=== PATIENT | male | born 1955 | race Caucasian/White ===

== ENCOUNTER 2016-11-07 00:11 | Inpatient (IN) | payer OTHER ==
[2016-11-02 11:17] VITALS: BP 172/99
[2016-11-02 13:49] LABS: BASOPHIL % 0.4 % (0.0-0.2); EOSINOPHIL # 0.1 10^3/uL (0.0-0.2); EOSINOPHIL % 1.7 % (0.0-5.0); HEMOGLOBIN 14.4 g/dL (13.9-16.3); LYMPHOCYTES # 2.6 10^3/uL (1.0-4.8); LYMPHOCYTES % 32.3 % (24.0-44.0); MEAN CELL HGB 32.9 pg (26-34); MEAN CELL HGB CONCENTRATION 33.8 g/dL (33-37); MEAN CORP VOLUME 97.3 fL (78-100); MEAN PLATELET VOLUME 10.6 fL (7.8-11.0); MONOCYTES # 0.9 10^3/uL (0.3-0.8); MONOCYTES % 10.7 % (5.0-12.0); NEUTROPHIL # 4.4 10^3/uL (1.8-7.7); NEUTROPHILS % 54.5 % (41.0-85.0); WHITE BLOOD CELL 8.1 10^3/uL (4.5-11.0)
[2016-11-02 14:16] LABS: BILIRUBIN,URINE NEGATIVE (NEGATIVE); UROBILINOGEN,URINE NORMAL (NEGATIVE)
[2016-11-02 14:20] LABS: APPEARANCE,URINE CLEAR (CLEAR); UA COLOR YELLOW (YELLOW)
[2016-11-02 14:27] LABS: CARBON DIOXIDE 24.5 mmol/L (20.0-32)
--- NOTE | 2016-11-02 16:03 | DIREP ---
PROCEDURE:CHEST 2 VIEWS COMPARISON:None. INDICATIONS:PRE-OP, OA KNEE FINDINGS: LUNGS/PLEURA:No significant pulmonary parenchymal abnormalities. No effusions. VASCULATURE:Normal. Unremarkable pulmonary vasculature. CARDIAC:Normal. No cardiac silhouette abnormality or cardiomegaly. MEDIASTINUM:Normal. No visible mass or adenopathy. BONES:Mild degenerative changes of the thoracic spine. OTHER:Negative. CONCLUSION:No acute cardiopulmonary abnormality. Dictated by: Nathaniel Marquez M.D. on 11/02/2016 at 04:02 PM
[2016-11-05] MEDS: CELEBREX PO SCH ×2 (09:00→21:00)
[2016-11-06] MEDS: CELEBREX PO SCH ×2 (09:00→21:00)
[~2016-11-07] VITALS: Ht 170.2 cm; Wt 80.7 kg
[2016-11-07] VITALS (17 sets, daily range): BP systolic 129–190; BP diastolic 77–117
[~2016-11-07 00:11] MED LIST: CELEBREX PO ONE; NEURONTIN PO ONE; TRAM50TA PO; TYLENOL PO ONE; TYLENOL PO PRN
[2016-11-07] MEDS ORDERED: VANCOMYCIN HCL 2 GM ONE (05:21)
[2016-11-07] MEDS ORDERED: NS 250ML 250 ML IV ONE ×2 (05:22→07:16)
[2016-11-07] MEDS ORDERED: VANCOMYCIN 1,500 MG in NS 100ML 100 ML IV ONE (06:00)
[2016-11-07] MEDS ORDERED: BACTROBAN NASAL NS ONE (06:00)
[2016-11-07] MEDS: LACTATED RINGERS 1,000 ML IV SCH (06:24)
[2016-11-07] MEDS ORDERED: NEURONTIN ONE ×2 (06:30)
[2016-11-07] MEDS ORDERED: VANCOMYCIN 1,500 MG in NS 250ML 300 ML IV ONE (06:58)
[2016-11-07] MEDS ORDERED: DECADRON ONE (07:04)
[2016-11-07] MEDS ORDERED: LIDOCAINE 2% VIAL ONE (07:04)
[2016-11-07] MEDS ORDERED: TORADOL ONE (07:05)
[2016-11-07] MEDS ORDERED: DILAUDID ONE (07:05)
[2016-11-07] MEDS ORDERED: ZEMURON IV ONE (07:05)
[2016-11-07] MEDS ORDERED: NEOSTIGMINE ONE (07:05)
[2016-11-07] MEDS ORDERED: ZOFRAN ONE (07:05)
[2016-11-07] MEDS ORDERED: SUBLIMAZE ONE (07:06)
[2016-11-07] MEDS ORDERED: VERSED ONE (07:06)
[2016-11-07] MEDS ORDERED: DIPRIVAN IV ONE (07:06)
[2016-11-07] MEDS ORDERED: QUELICIN ONE (07:06)
[2016-11-07] MEDS ORDERED: NAROPIN 0.2% 40 MG/20 ML VIAL ONE (07:07)
[2016-11-07] MEDS ORDERED: NS 100ML 200 ML IV ONE (07:16)
[2016-11-07] MEDS ORDERED: SODIUM CHLORIDE IR ONE ×2 (07:16)
[2016-11-07] MEDS ORDERED: TRANEXAMIC ACID IV ONE (08:09)
[2016-11-07] MEDS: CELEBREX PO SCH ×3 (09:00→21:28)
--- NOTE | 2016-11-07 10:41 | PCM.HP ---
History of Present Illness Reason for Visit: Right knee pain History of Present Illness 61yo male complains of right knee pain for several years. He has tried multiple injections without relief. He has tried Tramadol and Mobic. He complains of night pain, and giving way. No relief with bracing or physical therapy. His xrays do show bone on bone medially and about the patello femoral joint. Past Surgical History: Hernia Repair Past Social History Smoke: No Alcohol: occassional Drugs: None Travel Hx EBOLA RISK:Travel to/contact w: No Review of Systems Musculoskeletal: leg pain (Right knee pain) Allergies: Coded Allergies: No Known Allergies (Unverified , 11/02/16) Scheduled Tramadol Hcl (Tramadol Hcl), 1 TAB PO HS, (Reported) VTE VTE Risk Total Score: >5 VTE Risk Score VTE Risk: Score 0-1 = Low Risk (Aggressive mobilization; early ambulation; no VTE prophylaxis required) Score 2: Moderate Risk (Intermittent/Pneumatic Compression Device OR Lovenox/Heparin/Coumadin) Score 3-4: High Risk (Intermittent/Pneumatic Compression Device AND Lovenox/Heparin/Coumadin) Score > or =5: Highest Risk (Intermittent/Pneumatic Compression Device AND Lovenox/Heparin/Coumadin) VTE VTE Present on Admission: No Currently receiving anticoagul: No VTE Risk Total Score: >5 Exam Vital Signs Vital Signs Date Time Temp Pulse Resp B/P (MAP) Pulse Ox O2 Delivery O2 Flow Rate FiO2 11/07/16 07:25 76 18 129/83 (98) 96 Nasal Canula 11/07/16 06:08 98.3 General Appearance: Alert, Oriented X3, Cooperative, No acute distress HEENT: Atraumatic Respiratory: Clear to auscultation, Normal air movement Cardiovascular: Regular rate, Normal S1, Normal S2, No murmurs Abdominal: Normal bowel sounds, Soft, No tenderness Extremities: No clubbing, No cyanosis, No edema Skin: No rash, No breakdown, No lesions, Other (Right knee 2+ effusion, varus deformity, full extension, 110 degrees flexion, moderate crepitation) Neuro: Normal gait, Normal speech, Strength at 5/5 X4 ext, Normal tone, Sensation intact Psych/Mental Status: Mental status NL, Mood NL Assessment/Plan Assessment/Plan Assessment/Plan A: OA right knee P: Right total knee arthroplasty Problems: Patient History: Alzheimer's disease 32 MOTHER Cerebrovascular disorder 32 MOTHER Diabetes mellitus G8 SISTER FHx: multiple sclerosis 32 MOTHER No known health problems G8 BROTHER G8 SISTER Ulcerative colitis G8 SISTER Valvular heart disease 33 FATHER ELOISA GARDNER PAC Nov 07, 2016 10:41
[2016-11-07] MEDS ORDERED: VANCOMYCIN HCL IV SCH (11:00)
[2016-11-07] MEDS ORDERED: LACTATED RINGERS 1,000 ML IV SCH (11:00)
[2016-11-07] MEDS ORDERED: DILAUDID IV PRN (11:00)
[2016-11-07] MEDS ORDERED: MORPHINE SULFATE IV PRN (11:00)
[2016-11-07] MEDS ORDERED: AMBIEN PO PRN (11:00)
[2016-11-07] MEDS ORDERED: SUBLIMAZE IV PRN (11:00)
[2016-11-07] MEDS ORDERED: CEPACOL SORE THROAT LOZENGE MM PRN (11:00)
[2016-11-07] MEDS: DILAUDID IV PRN (11:07)
[2016-11-07] MEDS ORDERED: TRANDATE IV ONE (11:17)
[2016-11-07] MEDS ORDERED: MORPHINE SULFATE ONE (11:20)
[2016-11-07] MEDS: MORPHINE SULFATE IV PRN ×2 (11:23→12:48)
[2016-11-07] MEDS ORDERED: TRANDATE IV PRN (11:30)
[2016-11-07] MEDS ORDERED: TYLENOL PO PRN (11:30)
[2016-11-07] MEDS ORDERED: VALIUM ONE (11:36)
[2016-11-07] MEDS: VALIUM PO PRN (11:41)
[2016-11-07] MEDS: NORCO 5MG PO PRN ×3 (13:09→21:28)
--- NOTE | 2016-11-07 13:09 | OPH ---
DATE OF SURGERY: 11/07/2016 PREOPERATIVE DIAGNOSIS: OA of the right knee. POSTOPERATIVE DIAGNOSIS: OA of the right knee. OPERATIVE PROCEDURE: Right total knee arthroplasty using Medacta Sphere knee, size 4+ femur, a size 4 tibia, 10 mm insert, a medium dome patella, all components were cemented. SURGEON: Melecio Donovan MD STAFF NUCLEAR MEDICINE TECHNOLOGIST: Radha Ferreira PA-C ANESTHESIA: General endotracheal. TOURNIQUET TIME: 72 minutes at 300 mmHg. DRAINS: None. BLOOD LOSS: 300 mL. DESCRIPTION OF INDICATIONS: The patient is a 61-year-old male. He had right knee pain for several years to the point now where he has pain with just household ambulation as well as night pain. He has been on multiple anti-inflammatories in the past. He has had multiple cortisone injections as well as multiple Orthovisc injections. He has tried bracing as well as formal physical therapy. He walks with a limp. His exam shows full range of motion about the knee, 1+ effusion, mild varus deformity, good medial and lateral stability. The x-rays show that he is [id number] medially with some lateral femoral osteophytes and some patellofemoral narrowing with osteophytes. The patient was taken to the operating room today for right total knee arthroplasty for pain relief. DESCRIPTION OF PROCEDURE: The patient was placed on the operating table in the supine position. A general endotracheal anesthetic was induced without difficulty. A well-padded tourniquet was placed about the right thigh. The right lower extremity was then sterilely prepped and draped. The leg was then exsanguinated with an Esmarch and the tourniquet was inflated to 300 mmHg with a good bounce. The knee was flexed to 90 degrees. An anterior incision was made about the knee. Full thickness flaps were developed medially and laterally. Medial parapatellar arthrotomy was performed. The patella was deviated laterally. The ACL and PCL were excised. The patient's medial and lateral meniscectomies were performed. The patient had the capsule and the MCL released around the posterior medial corner. The patient then had the intramedullary drill hole made about the distal femur. The distal femoral cutting guide was attached to the IM kaya. The IM kaya was passed down the shaft of the femur. The cutting block was then secured to the distal femur with multiple pins. It was set at 6 degrees of valgus. The distal femoral cut was then made with the power saw. The patient then had the intramedullary kaya removed from the femur. The tibia was subluxed anteriorly using the bent knee retractor. An intramedullary drill hole was then made in the tibia. The patient had the tibial cutting block, which was attached to the tibial IM kaya placed about the proximal tibia. It was adjusted for posterior slope, varus, valgus and depth of cut as well as rotation. Once all the parameters were felt to be satisfactory, the cutting block was pinned into position. The tibial cut was made at 8 mm below the least involved surface, which was lateral. We then turned our attention back to the femur. The #2 guide was applied and the femur measured a size 4+. The #3 jig, size 4+ was applied to the distal femur. It was held into position with 2 screws and 2 pins. The anterior and posterior femoral cuts as well as the chamfer cuts were then made. The tibia was then subluxed anteriorly again. The size 4 tibial trial had good coverage. The tibial trial was held into position with 2 pins. The central drill hole was made and then the cruciate punch was used to stabilize the tibial component. The patient then had the trial reduction done with a 4+ femur, 4 tibia, a 10 mm insert. The knee went out into full extension, 120 degrees of passive flexion, excellent medial and lateral stability throughout the range of motion. The patella was everted and it measured 25 mm. The patellar cutting guide was applied after the peripheral edges were cauterized. The patellar cut was made. There were still 15 mm of patella remaining. The drill holes were then made and a medium dome patella had good coverage. There was good tracking of the patella. The patient then had the medial and lateral femoral drill holes made. The femoral trial was removed and the femoral sulcus cut was made. All the trial components were then removed. The bone ends were copiously irrigated and the bone ends were dried. A size 4 tibial component was cemented into position. A 10 mm insert was impacted into position and secured with an anterior screw. The femoral component, which was 4+ was likewise cemented into position as was the patella. Once all the excess cement was removed and the cement had hardened, then, the tourniquet was released. The bleeding was controlled with the Aquamantys device. The capsule was closed with #2 PDS in interrupted [id number] manner. The joint was then injected with 1 g of tranexamic acid diluted with 90 mL of saline. The patient then had the subcutaneous closed with a 2-0 Monocryl barbed in a running manner. The skin was closed with aruna. The patient then had an Aquacel dressing applied that was reinforced by 4 x 8s, ABD pads, cast padding and an Wes wrap. The patient was extubated in the operating room, sent to recovery in stable condition. Melecio Donovan MD DR: KEVIN/david JOB# [id number]
--- NOTE | 2016-11-07 13:23 | DIREP ---
PROCEDURE:XRAY KNEE 1-2 VWS-RT COMPARISON:None. INDICATIONS:Post knee replacement FINDINGS: Arthroplasty right knee in good alignment and without visualized complication. Joint effusion and subcutaneous emphysema compatible with recent surgery. Surgical aruna overlie the skin. CONCLUSION: Arthroplasty in good alignment and without visualized complication. Dictated by: Arsen Ruiz DO on 11/07/2016 at 12:52 PM
[2016-11-07] MEDS: NEURONTIN PO SCH ×2 (15:35→21:28)
[2016-11-07 18:15] LABS: HEMOGLOBIN 12.5 g/dL (13.9-16.3); MEAN CELL HGB 32.9 pg (26-34); MEAN CELL HGB CONCENTRATION 33.2 g/dL (33-37); MEAN CORP VOLUME 98.9 fL (78-100); MEAN PLATELET VOLUME 10.2 fL (7.8-11.0); WHITE BLOOD CELL 12.5 10^3/uL (4.5-11.0)
[2016-11-07] MEDS: VANCOMYCIN HCL 1.5 GM in NS 250ML 300 ML IV SCH (19:34)
--- NOTE | 2016-11-07 20:12 | NUR ---
DR. WANG CALLED FOR ORDER OF RESTORIL
[2016-11-07] MEDS: BACTROBAN NASAL NS PRN (21:00)
[2016-11-07] MEDS ORDERED: BACTROBAN TP ONE (21:44)
[2016-11-07] MEDS: RESTORIL PO PRN (22:41)
[2016-11-08 00:56] VITALS: BP 142/77
[2016-11-08] MEDS: NORCO 5MG PO PRN ×4 (01:37→20:59)
[2016-11-08 04:33] VITALS: BP 134/82
[2016-11-08 05:24] LABS: HEMOGLOBIN 11.4 g/dL (13.9-16.3); MEAN CELL HGB 32.9 pg (26-34); MEAN CELL HGB CONCENTRATION 32.9 g/dL (33-37); RED CELL DISTRIBUTION WIDTH 12.9 % (11.5-14.5); WHITE BLOOD CELL 11.3 10^3/uL (4.5-11.0)
[2016-11-08] MEDS: LACTATED RINGERS 1,000 ML IV SCH (06:00)
[2016-11-08] MEDS: VANCOMYCIN HCL 1.5 GM in NS 250ML 300 ML IV SCH ×2 (06:28→18:33)
--- NOTE | 2016-11-08 07:15 | NUR ---
REPORT RECEIVED FROM SARIKA RICHMOND.
--- NOTE | 2016-11-08 08:00 | NUR ---
PATIENT SITTING UP IN BED. NO DISTRESS NOTED. SR UP X2. CALL LIGHT WITHIN REACH.
--- NOTE | 2016-11-08 08:14 | NUR ---
Post op pain rounds post TKA surgery with Femoral block. Pt standing in room with walker. States pain block wore off around 1430 yesterday. Has been ambulating and getting up to chair. All sensations intact currently. No complications noted. Pt is very pleased with anesthetic.
--- NOTE | 2016-11-08 08:22 | PRM.PN ---
Subjective Subjective Subjective Awake and alert, up to side of bed Pain ok M-N-V intact Dressing dry and intact Up in bull with walker and PT yesterday Afebrile, VSS H/H , post op anemia expected due to surgical blood loss Patient History: Alzheimer's disease 32 MOTHER Cerebrovascular disorder 32 MOTHER Diabetes mellitus G8 SISTER FHx: multiple sclerosis 32 MOTHER No known health problems G8 BROTHER G8 SISTER Ulcerative colitis G8 SISTER Valvular heart disease 33 FATHER VTE VTE Risk Total Score: >5 VTE Risk Score VTE Risk: Score 0-1 = Low Risk (Aggressive mobilization; early ambulation; no VTE prophylaxis required) Score 2: Moderate Risk (Intermittent/Pneumatic Compression Device OR Lovenox/Heparin/Coumadin) Score 3-4: High Risk (Intermittent/Pneumatic Compression Device AND Lovenox/Heparin/Coumadin) Score > or =5: Highest Risk (Intermittent/Pneumatic Compression Device AND Lovenox/Heparin/Coumadin) Review of Systems Musculoskeletal: leg pain (Right knee pain) Allergies: Coded Allergies: No Known Allergies (Unverified , 11/02/16) Scheduled Tramadol Hcl (Tramadol Hcl), 1 TAB PO HS, (Reported) Objective Vitals and I/O Vital Sign - Last 24 Hours 11/07/16 11/07/16 11/07/16 11/07/16 10:49 10:49 10:54 10:59 Temp 97.0 98.0 Pulse 103 99 102 Resp 18 18 18 B/P (MAP) 171/117 (135) 190/111 (137) 187/99 (128) Pulse Ox 95 94 95 O2 Delivery Nasal Canula Nasal Canula Nasal Canula O2 Flow Rate 3 11/07/16 11/07/16 11/07/16 11/07/16 11:04 11:09 11:14 11:19 Temp 97.2 Pulse 94 93 95 86 Resp 18 18 18 18 B/P (MAP) 177/95 (122) 173/95 (121) 175/103 (127) 167/94 (118) Pulse Ox 96 95 95 94 O2 Delivery Nasal Canula Nasal Canula Nasal Canula Nasal Canula 11/07/16 11/07/16 11/07/16 11/07/16 11:24 11:29 11:34 11:39 Temp 98.2 98.0 Pulse 90 84 86 84 Resp 18 18 18 18 B/P (MAP) 167/94 (118) 174/103 (126) 170/95 (120) 157/90 (112) Pulse Ox 95 99 96 97 O2 Delivery Nasal Canula Nasal Canula Nasal Canula Nasal Canula 11/07/16 11/07/16 11/07/16 11/07/16 11:44 12:36 12:38 12:40 Pulse 98 85 Resp 18 18 18 B/P (MAP) 174/94 (120) Pulse Ox 97 98 98 O2 Delivery Nasal Canula Nasal Cannula Nasal Cannula O2 Flow Rate 3.00 2.00 FiO2 32 11/07/16 11/07/16 11/07/16 11/08/16 20:17 21:27 22:15 00:56 Temp 97.2 96.8 Pulse 82 82 87 Resp 18 16 18 B/P (MAP) 132/77 (95) 142/77 (98) Pulse Ox 96 96 95 O2 Delivery Nasal Canula Nasal Cannula Nasal Cannula Nasal Canula O2 Flow Rate 2.00 2.00 FiO2 28 11/08/16 11/08/16 04:33 07:53 Temp 96.7 Pulse 68 72 Resp 18 18 B/P (MAP) 134/82 (99) Pulse Ox 98 98 O2 Delivery Nasal Canula Nasal Cannula O2 Flow Rate 2.00 Medication Reconciliation Scheduled Tramadol Hcl (Tramadol Hcl), 1 TAB PO HS, (Reported) Course Blood Pressure Systolic: 134 Blood Pressure Diastolic: 82 Blood Pressure Mean: 99 Assessment/Plan Assessment/Plan Patient History: Alzheimer's disease 32 MOTHER Cerebrovascular disorder 32 MOTHER Diabetes mellitus G8 SISTER FHx: multiple sclerosis 32 MOTHER No known health problems G8 BROTHER G8 SISTER Ulcerative colitis G8 SISTER Valvular heart disease 33 FATHER Plan Continue with PT Recheck CBC in the morning ELOISA GARDNER PAC Nov 08, 2016 08:22
--- NOTE | 2016-11-08 08:53 | NUR ---
PHYSICAL THERAPY ASSISTING PATIENT WITH PERSONAL CARE.
--- NOTE | 2016-11-08 09:21 | NUR ---
DISCHARGE PLANNING: SS VISITED WITH PT AND SISTER REGARDING DISCHARGE PLANNING. PT LIVES HOME ALONE, BUT IS THE CAREGIVER FOR HIS PARENTS. PT'S SISTER IS GOING TO BE STAYING HERE TO ASSIST WITH CARE FOR HER PARENTS AND PT DURING RECOVER PROCESS. PT HAS DME IN PLACE HIS SISTER USED FROM HER KNEE REPLACEMENT PT WILL USE. PT'S PARENTS HOUSE IS [employer] AND WILL BE EASY FOR PT TO MANEUVER AROUND. PT WOULD LIKE TO HAVE HOME HEALTH CARE COME IN FOR THE FIRST WEEK WHILE HE IS STAYING AT HIS PARENTS HOUSE AND THEN WOULD LIKE TO GO OUTPATIENT IF HE IS ABLE TO ONCE HE RETURNS BACK HOME TO HIS HOUSE IN [place]. SS LET PT AND SISTER KNOW WITH PT'S INSURANCE IT IS HARD TO FIND AGENCIES IN NETWORK. SS LET PT KNOW SHE KNOWS [facility] AND [facility] HAVE GOTTEN INSURANCE APPROVAL IN THE PAST, BUT IT IS A CASE BY CASE BASES. SS LET PT AND SISTER KNOW SHE WOULD JUST HAVE TO CALL AND LET THE HOME HEALTH AGENCIES RUN IT TO SEE IF THEY ARE IN NETWORK. PT VERBALIZED UNDERSTANDING AND STATED THAT TRISTEN, WITH PT, HAD GIVEN HIM INFORMATION ON [facility] IN [facility] AND HE WOULD LIKE TO SEE IF THEY ARE IN NETWORK WITH HIS INSURANCE. SS LET PT KNOW SHE WOULD REACH OUT TO THEM AND SEE IF THEY WOULD BE ABLE TO TAKE HIM ONCE HE GOT BACK HOME. CHOICE LETTER, PRESENTED, SIGNED AND PLACED INTO PT'S CHART. SS REACHED OUT TO [facility] WHO AT THIS TIME IS RUNNING PT'S INSURANCE TO SEE IF THEY COULD GET APPROVAL FOR HOME HEALTH AND PHYSICAL THERAPY NEEDS. SS THEN REACHED OUT TO [facility] AT [phone] AND THEY STATED THEY WOULD JUST HAVE TO RUN PT'S INSURANCE TO SEE IF THEY WERE IN NETWORK AND WOULD LET THIS WORKER AND THE PT KNOW. NO FURTHER NEEDS KNOWN AT THIS TIME. PT SAFETY HANDOUT ADDRESSED, NO QUESTIONS ASKED, UNDERSTANDING VERBALIZED. SS TO CONTINUE TO FOLLOW DISCHARGE PLANNING NEEDS. GOAL FOR PT TO RETURN HOME WITH PARENTS AND SISTERS ASSISTANCE WITH HOME HEALTH CARE IN PLACE. .
[2016-11-08] MEDS: PEPCID PO SCH (09:42)
[2016-11-08] MEDS: COLACE PO SCH (09:42)
[2016-11-08] MEDS: CELEBREX PO SCH (09:43)
[2016-11-08] MEDS: XARELTO PO SCH (09:44)
[2016-11-08] MEDS: NEURONTIN PO SCH (09:44)
[2016-11-08] MEDS: VALIUM PO PRN ×3 (09:44→20:59)
[2016-11-08 09:51] VITALS: BP 127/82
[2016-11-08] MEDS: DILAUDID IV PRN (10:02)
[2016-11-08 11:43] VITALS: BP 158/87
--- NOTE | 2016-11-08 13:33 | NUR ---
PATIENT MOVED FROM CHAIR TO BED. REPORTS KNEE "SPASMING". ICE MAN REFILLED. MEDICATED WITH VALIUM. PATIENT RESTING IN BED. SR UP X2. CALL LIGHT WITHIN REACH.
--- NOTE | 2016-11-08 15:15 | NUR ---
NOTIFIED DR WANG OF PATIENT CONTINUES TO BE UNCOMFORTABLE. PATIENT HAS HAD NORCO, VALIUM AND DILAUDID. PATIENT REPORTS DILAUDID DOES NOT LAST LONG ENOUGH. THE NORCO DOES NOT ALLEVIATE THE PAIN. PATIENT REPORTS DR WANG MENTIONED TORADOL THIS AM. T.O. RECEIVED FOR TORADOL 60MG IV Q 6 HRS PRN PAIN.
[2016-11-08] MEDS ORDERED: TORADOL ONE (15:18)
[2016-11-08] MEDS ORDERED: TORADOL IV ONE ×2 (15:38→16:00)
[2016-11-08 16:48] VITALS: BP 144/76
--- NOTE | 2016-11-08 18:00 | NUR ---
PATIENT LYING IN BED WITH CPM IN PLACE. TOLERATING WITHOUT PROBLEMS. STOPPED AND REMOVED. PATIENT UP IN ROOM WITH ROLLING WALKER WITHOUT PROBLEMS. REPORTS RELIEF OF PAIN WITH TORADOL. DENIES COMPLAINTS AT PRESENT. SITTING UP ON SIDE OF BED EATING SUPPER. NO DISTRESS NOTED.
--- NOTE | 2016-11-08 19:09 | NUR ---
REPORT GIVEN TO SARIKA RICHMOND.
[2016-11-08 20:00] VITALS: BP 131/90
[2016-11-09] VITALS: BP 158/85
[2016-11-09] MEDS: NORCO 5MG PO PRN ×6 (00:27→21:04)
[2016-11-09] MEDS: TORADOL IV PRN ×3 (00:27→18:57)
[2016-11-09] MEDS: RESTORIL PO PRN (00:28)
[2016-11-09 04:37] VITALS: BP 144/83
[2016-11-09 05:50] LABS: HEMOGLOBIN 11.2 g/dL (13.9-16.3); MEAN CELL HGB 32.7 pg (26-34); MEAN CELL HGB CONCENTRATION 32.6 g/dL (33-37); MEAN CORP VOLUME 100.3 fL (78-100); MEAN PLATELET VOLUME 10.3 fL (7.8-11.0); RED CELL DISTRIBUTION WIDTH 13.2 % (11.5-14.5); WHITE BLOOD CELL 8.3 10^3/uL (4.5-11.0)
--- NOTE | 2016-11-09 06:30 | NUR ---
REPORT received report assumed care of patient.
--- NOTE | 2016-11-09 08:27 | PRM.PN ---
Subjective Subjective Subjective Awake and alert Pain better with Toradol Sitting up to side of bed this morning Up in bull with walker and PT Dressing dry and intact Afebrile, VSS H/H M-N-V intact Patient History: Alzheimer's disease 32 MOTHER Cerebrovascular disorder 32 MOTHER Diabetes mellitus G8 SISTER FHx: multiple sclerosis 32 MOTHER No known health problems G8 BROTHER G8 SISTER Ulcerative colitis G8 SISTER Valvular heart disease 33 FATHER VTE VTE Risk Total Score: >5 VTE Risk Score VTE Risk: Score 0-1 = Low Risk (Aggressive mobilization; early ambulation; no VTE prophylaxis required) Score 2: Moderate Risk (Intermittent/Pneumatic Compression Device OR Lovenox/Heparin/Coumadin) Score 3-4: High Risk (Intermittent/Pneumatic Compression Device AND Lovenox/Heparin/Coumadin) Score > or =5: Highest Risk (Intermittent/Pneumatic Compression Device AND Lovenox/Heparin/Coumadin) Review of Systems Musculoskeletal: leg pain (Right knee pain) Allergies: Coded Allergies: No Known Allergies (Unverified , 11/02/16) Scheduled Tramadol Hcl (Tramadol Hcl), 1 TAB PO HS, (Reported) Objective Vitals and I/O Vital Sign - Last 24 Hours 11/08/16 11/08/16 11/08/16 11/08/16 09:00 09:51 11:43 16:48 Temp 98.9 98.6 98.6 Pulse 88 62 82 Resp 18 18 18 B/P (MAP) 127/82 (97) 158/87 (110) 144/76 (98) Pulse Ox 95 96 93 O2 Delivery Room Air Room Air 11/08/16 11/08/16 11/08/16 11/09/16 20:00 21:31 21:45 00:00 Temp 97.7 97.0 Pulse 89 89 83 Resp 18 18 18 B/P (MAP) 131/90 (104) 158/85 (109) Pulse Ox 93 93 94 O2 Delivery Room Air Room Air Room Air 11/09/16 04:37 Temp 97.2 Pulse 87 Resp 18 B/P (MAP) 144/83 (103) Pulse Ox 93 O2 Delivery Room Air Medication Reconciliation Scheduled Tramadol Hcl (Tramadol Hcl), 1 TAB PO HS, (Reported) Course Blood Pressure Systolic: 144 Blood Pressure Diastolic: 83 Blood Pressure Mean: 103 Assessment/Plan Assessment/Plan Patient History: Alzheimer's disease 32 MOTHER Cerebrovascular disorder 32 MOTHER Diabetes mellitus G8 SISTER FHx: multiple sclerosis 32 MOTHER No known health problems G8 BROTHER G8 SISTER Ulcerative colitis G8 SISTER Valvular heart disease 33 FATHER Plan Continue with PT Possible discharge this afternoon or tomorrow ELOISA GARDNER PAC Nov 09, 2016 08:27
[2016-11-09] MEDS: PEPCID PO SCH (09:24)
[2016-11-09] MEDS: COLACE PO SCH (09:24)
[2016-11-09] MEDS: XARELTO PO SCH (09:25)
[2016-11-09] MEDS: BACTROBAN NASAL NS PRN ×2 (09:25→21:45)
[2016-11-09 10:45] VITALS: BP 134/72
[2016-11-09 12:14] VITALS: BP 162/82
[2016-11-09] MEDS ORDERED: MAGNESIUM CITRATE PO STA (13:45)
[2016-11-09] MEDS: VALIUM PO PRN ×2 (14:02→21:03)
--- NOTE | 2016-11-09 16:05 | NUR ---
D/C UPDATE: [facility] LET THIS WORKER KNOW PT WAS IN NETWORK AND THEY COULD SEE HIM, BUT PT WOULD HAVE A $10 COPAY PER VISIT. MIKEL WITH [facility] CONTACTED THIS WORKER AND STATED "PT IS OUT OF NETWORK WITH THEM, BUT THEY WOULD BE ABLE TO SEE PT, BUT IT WOULD BE A $50.00 CO PAY PER VISIT". SS LET PT KNOW OF FINDINGS. PT WAS OKAY WITH [facility] TO COME IN THE FIRST WEEK AND HE WOULD PAY COPAY. PT WOULD LIKE SS TO REACH OUT TO INSURANCE AND SEE WHO IS IN HIS NETWORK FOR OUTPATIENT PHYSICAL THERAPY. SS CONTACTED [facility] AND THE WORKER STATED [facility] WAS THE ONLY PLACE IN HIS AREA IN NETWORK WITH HIS INSURANCE PLAN. SS ALSO LET [facility] KNOW THAT PT WOULD BE DOING HH THE FIRST WEEK AND THEN TRANSITION TO OUTPATIENT THERAPY. SS THEN REACHED OUT TO VILLA MATTA WITH [facility] REGARDING PT AND OUTPATIENT THERAPY. VILLA STATED "WE WILL BE ABLE TO TAKE PT AND OUR PHYSICAL THERAPIST MED LEE WOULD BE ABLE TO WORK WITH HIM". VILLA SET UP AND INITIAL APPOINTMENT TO GO OVER EVERYTHING WITH PT ON Monday AT 1530. SS LET PT KNOW OF FINDING. NO FURTHER NEEDS NOTED AT THIS TIME.
--- NOTE | 2016-11-09 19:00 | NUR ---
Report Report given relinquished care.
[2016-11-09 19:51] VITALS: BP 166/89
[2016-11-10 00:19] VITALS: BP 159/84
[2016-11-10] MEDS: NORCO 5MG PO PRN ×2 (00:20→04:35)
[2016-11-10] MEDS: RESTORIL PO PRN (00:20)
--- NOTE | 2016-11-10 00:33 | NUR ---
MEDICATED WITH RESTORIL AND NORCO FOR SLEEP AND PAIN. DENIES OTHER NEEDS.
[2016-11-10] MEDS: TORADOL IV PRN ×2 (04:34→11:31)
[2016-11-10 04:38] VITALS: BP 134/81
--- NOTE | 2016-11-10 06:30 | NUR ---
REPORT report given assumed care of patient.
--- NOTE | 2016-11-10 08:48 | PRM.PN ---
Subjective Subjective Subjective Awake and alert Pain ok Wound benign Afebrile, VSS H/H Up in room independently with walker Patient History: Alzheimer's disease 32 MOTHER Cerebrovascular disorder 32 MOTHER Diabetes mellitus G8 SISTER FHx: multiple sclerosis 32 MOTHER No known health problems G8 BROTHER G8 SISTER Ulcerative colitis G8 SISTER Valvular heart disease 33 FATHER VTE VTE Risk Total Score: >5 VTE Risk Score VTE Risk: Score 0-1 = Low Risk (Aggressive mobilization; early ambulation; no VTE prophylaxis required) Score 2: Moderate Risk (Intermittent/Pneumatic Compression Device OR Lovenox/Heparin/Coumadin) Score 3-4: High Risk (Intermittent/Pneumatic Compression Device AND Lovenox/Heparin/Coumadin) Score > or =5: Highest Risk (Intermittent/Pneumatic Compression Device AND Lovenox/Heparin/Coumadin) Review of Systems Musculoskeletal: leg pain (Right knee pain) Allergies: Coded Allergies: No Known Allergies (Unverified , 11/02/16) Scheduled Tramadol Hcl (Tramadol Hcl), 1 TAB PO HS, (Reported) Objective Vitals and I/O Vital Sign - Last 24 Hours 11/09/16 11/09/16 11/09/16 11/09/16 10:40 10:44 10:45 12:14 Temp 97.2 Pulse 92 87 86 Resp 18 18 18 B/P (MAP) 134/72 (92) 162/82 (108) Pulse Ox 95 93 96 O2 Delivery Room Air Room Air Room Air 11/09/16 11/09/16 11/10/16 11/10/16 19:51 22:20 00:19 01:10 Temp 98.4 98.1 Pulse 95 95 86 Resp 18 18 18 B/P (MAP) 166/89 (114) 159/84 (109) Pulse Ox 95 95 93 O2 Delivery Room Air Room Air Room Air Room Air 11/10/16 04:38 Temp 97.8 Pulse 83 Resp 18 B/P (MAP) 134/81 (98) Pulse Ox 91 O2 Delivery Room Air Medication Reconciliation Scheduled Tramadol Hcl (Tramadol Hcl), 1 TAB PO HS, (Reported) Course Blood Pressure Systolic: 134 Blood Pressure Diastolic: 81 Blood Pressure Mean: 98 Assessment/Plan Assessment/Plan Patient History: Alzheimer's disease 32 MOTHER Cerebrovascular disorder 32 MOTHER Diabetes mellitus G8 SISTER FHx: multiple sclerosis 32 MOTHER No known health problems G8 BROTHER G8 SISTER Ulcerative colitis G8 SISTER Valvular heart disease 33 FATHER Plan Will d/c home today Outpatient PT in [place] Appt. on Monday Aquacell dressing and KAYLEN hose placed Prescription written for tylenol 4, xarelto, and valium Continue to WBAT on right with ELOISA Ricks PAC Nov 10, 2016 08:48
[2016-11-10] MEDS ORDERED: DIAZ5TAB4 PO (08:52)
[2016-11-10] MEDS ORDERED: ACET-687 PO (08:52)
[2016-11-10] MEDS: COLACE PO SCH (08:52)
[2016-11-10] MEDS: PEPCID PO SCH (08:52)
[2016-11-10] MEDS ORDERED: RIVA10TA PO (08:52)
[2016-11-10] MEDS: XARELTO PO SCH (08:53)
--- NOTE | 2016-11-10 09:00 | NUR ---
CPM MACHINE HAZEL RECEIVED AN ORDER FOR PATIENT TO DISCHARGE WITH A CPM MACHINE. ORDERS OBTAINED AND FAXED TO [facility] WITH ALL PATIENT APPLICABLE CLINICAL INFORMATION. HAZEL THEN NOTIFIED [facility] AND SPOKE TO DOMINIK WHOM STATED THAT DUE TO PATIENTS PROMINENCE INSURANCE, A CPM MACHINE REQUIRES AN AUTHORIZATION. SHE WOULD HAVE TO DELIVER CMP MACHINE TO PATIENTS [facility] @ [address] [place] [address]. HAZEL THEN NOTIFIED [facility] AND SPOKE TO SANDRA COLMENARES RN REGARDING PATIENTS HOSPITAL DISCHARGE FOR TODAY AND HANDED OFF REPORT. SANDRA STATED [facility] WILL FOLLOW UP WITH PATIENT TOMORROW 11/11/16 AND CONTINUE TO FOLLOW CPM NEED. CHARGE NURSE Marla HOLMAN RN NOTIFIED OF PATIENTS DISCHARGE PLAN.
[2016-11-10 10:02] VITALS: BP 124/78
--- NOTE | 2016-11-10 10:49 | DSH ---
DATE OF DISCHARGE: 11/10/2016 ADMITTING DIAGNOSIS: Osteoarthritis of the right knee. DISCHARGE DIAGNOSIS: Osteoarthritis of the right knee. OPERATIVE DATE: 11/07/2016. PROCEDURE PERFORMED: Right total knee arthroplasty. CONSULTATIONS: None. SUMMARY OF ADMISSION: This is a 61-year-old male who has complained of right knee pain for several years and getting worse. He complains of pain with household ambulation and night pain. He has failed conservative therapy and he was taken to the operating room for right total knee arthroplasty. The patient tolerated the procedure very well. Postoperatively, he has been awake and alert. His vital signs have been stable. He has been on a regular diet and tolerating it well. He has had physical therapy and occupational therapy while in the hospital and currently he is independent with transfers as well as with ambulation with the walker. His pain has been controlled with hydrocodone as well as and Toradol. He has also been on Xarelto 10 mg once daily as well as foot pumps, SCDs and early ambulation for DVT prophylaxis. On 11/10/2016, he continued to do well with physical therapy and occupational therapy. His wound appeared benign and an Aquacel dressing along with KAYLEN hose was placed. He will be discharged home today. He was given an order for outpatient physical therapy to be done over in [place]. He was also given a prescription for a CPM machine and he will continue to use his walker and weightbear as tolerated on that right side. He was given a prescription for Tylenol 4 Xarelto and and he will follow up in the clinic this coming up Monday. DICTATED BY: EMI Mark Melecio Donovan MD DR: SHAMA/david JOB# [id number]
--- NOTE | 2016-11-10 12:00 | NUR ---
Surgical dressing Surgical dressing in place unable to obtain pictures.
--- NOTE | 2016-11-10 12:40 | NUR ---
Discharge Patient provided discharge teaching and follow up appointment patient verbalizes understanding. Patient denies any further questions or concerns.
[2016-11-10 13:46] VITALS: BP 124/78
== END 2016-11-10 14:01 | disposition home health service (06) | DRG 470 ==
LOC: MS 00:11
PROVIDERS: ADMIT Orthopaedic Surgery; ATTEND Orthopaedic Surgery
PROC: 0SRC0J9 Replacement of Right Knee Joint with Synthetic Substitute, Cemented, Open Approach (ICD-10-PCS; principal; 2016-11-07 08:18)
DX: M17.11 Unilateral primary osteoarthritis, right knee (principal); D62 Acute posthemorrhagic anemia; M25.761 Osteophyte, right knee; M21.161 Varus deformity, not elsewhere classified, right knee; F17.220 Nicotine dependence, chewing tobacco, uncomplicated; Z82.3 Family history of stroke; Z83.3 Family history of diabetes mellitus; Z82.0 Family history of epilepsy and other diseases of the nervous system; Z82.49 Family history of ischemic heart disease and other diseases of the circulatory system; Z83.79 Family history of other diseases of the digestive system
CPT/HCPCS: 36415; 64447; 71020; 73560; 80053; 81002; 85025; 85027; 87070; 93005; 97162; 97165; J0330; J1100; J1170; J1885; J2001; J2250; J2270; J2405; J2795; J3010; J3490; J7030; J7050; J7120; 97110-GP; 97116-GP; 97535-GO; 97760-GP; C1776; G8978-CJ; G8979-CI; G8987; J2710; J3370; J8499

== ENCOUNTER 2017-01-23 00:07 | Inpatient (IN) | payer OTHER ==
[2017-01-18 15:47] VITALS: BP 161/94
--- NOTE | 2017-01-18 16:08 | PCM.EKG ---
[facility] Test Date: 2017-01-18 Test Time: 15:55:12 Pat Name: DANIEL HUNTER Department: Patient ID: [facility]-[id number] Room: Gender: M Residential Insurance Inspector: JAYLEEN RIVERA : 1955 Requested By: BRIAN WANG Order Number: [id number] Reading MD: Piedad Lopez Measurements Intervals [place] Rate: 81 P: 74 OR: 174 QRS: 81 QRSD: 86 T: 57 QT: 358 QTc: 415 Interpretive Statements Normal sinus rhythm Normal ECG No previous ECG available for comparison Electronically Signed On 01-19-2017 13:21:45 OVEN STRIPPER by Piedad Lopez Please click the below link to view image of tracing.
[2017-01-18 16:26] LABS: BASOPHIL % 0.5 % (0.0-0.2); EOSINOPHIL # 0.3 10^3/uL (0.0-0.2); HEMOGLOBIN 14.2 g/dL (13.9-16.3); LYMPHOCYTES # 2.6 10^3/uL (1.0-4.8); LYMPHOCYTES % 29.4 % (24.0-44.0); MEAN CELL HGB 31.3 pg (26-34); MEAN CELL HGB CONCENTRATION 32.8 g/dL (33-37); MEAN CORP VOLUME 95.6 fL (78-100); MEAN PLATELET VOLUME 10.4 fL (7.8-11.0); MONOCYTES # 0.9 10^3/uL (0.3-0.8); MONOCYTES % 10.4 % (5.0-12.0); NEUTROPHIL # 4.9 10^3/uL (1.8-7.7); NEUTROPHILS % 56.4 % (41.0-85.0); RED CELL DISTRIBUTION WIDTH 12.9 % (11.5-14.5); WHITE BLOOD CELL 8.7 10^3/uL (4.5-11.0)
[2017-01-18 16:50] LABS: CALCIUM 9.4 mg/dL (8.4-10.5); CARBON DIOXIDE 25.9 mmol/L (20.0-32)
--- NOTE | 2017-01-18 17:56 | DIREP ---
PROCEDURE:CHEST 2 VIEWS COMPARISON:[facility], CR, XRAY CHEST 2 VWS, 11/02/2016, 12:07 PM. INDICATIONS:PRE-OP OA LEFT KNEE FINDINGS: LUNGS/PLEURA:No significant pulmonary parenchymal abnormalities. No effusions. VASCULATURE:Normal. Unremarkable pulmonary vasculature. CARDIAC:Normal. No cardiac silhouette abnormality or cardiomegaly. Mildly tortuous a or MEDIASTINUM:Normal. No visible mass or adenopathy. BONES:Normal. No fracture or visible bony lesion. OTHER:Negative. CONCLUSION:No active cardiopulmonary disease. Dictated by: David Stuart M.D. on 01/18/2017 at 05:53 PM
[2017-01-23] VITALS (17 sets, daily range): BP systolic 145–170; BP diastolic 85–99
[~2017-01-23] VITALS: Ht 172.7 cm; Wt 88.2 kg
[~2017-01-23 00:07] MED LIST changes: +ACET-687 PO; -CELEBREX PO ONE; +DIAZ5TAB4 PO; +METH-3 PO; -NEURONTIN PO ONE; +RIVA10TA PO; -TYLENOL PO ONE; -TYLENOL PO PRN
[2017-01-23] MEDS ORDERED: ANCEF ONE (05:05)
[2017-01-23] MEDS ORDERED: NS 100ML 100 ML IV ONE ×2 (05:05→07:13)
[2017-01-23] MEDS ORDERED: TYLENOL PO ONE (06:00)
[2017-01-23] MEDS ORDERED: NEURONTIN PO ONE ×2 (06:00)
[2017-01-23] MEDS ORDERED: ANCEF 2 GM in NS 100ML 100 ML IV ONE (06:00)
[2017-01-23] MEDS ORDERED: CELEBREX PO ONE (06:00)
[2017-01-23] MEDS: LACTATED RINGERS 1,000 ML IV SCH ×3 (06:18→11:22)
[2017-01-23] MEDS ORDERED: NEURONTIN ONE (06:20)
[2017-01-23] MEDS ORDERED: DECADRON ONE (06:37)
[2017-01-23] MEDS ORDERED: NEOSTIGMINE ONE (06:37)
[2017-01-23] MEDS ORDERED: TORADOL ONE (06:37)
[2017-01-23] MEDS ORDERED: ZEMURON IV ONE (06:37)
[2017-01-23] MEDS ORDERED: XYLOCAINE ONE (06:37)
[2017-01-23] MEDS ORDERED: ZOFRAN ONE (06:37)
[2017-01-23] MEDS ORDERED: VERSED ONE ×2 (06:38→11:05)
[2017-01-23] MEDS ORDERED: DILAUDID ONE (06:38)
[2017-01-23] MEDS ORDERED: NAROPIN 5% 5 MG/ML VIAL ONE (06:39)
[2017-01-23] MEDS ORDERED: DIPRIVAN IV ONE ×2 (06:39→11:14)
[2017-01-23] MEDS ORDERED: SUBLIMAZE ONE (06:39)
[2017-01-23] MEDS ORDERED: NS 250ML 250 ML IV ONE (07:13)
[2017-01-23] MEDS ORDERED: TRANEXAMIC ACID IV ONE (07:13)
[2017-01-23] MEDS ORDERED: SODIUM CHLORIDE IR ONE (07:17)
[2017-01-23] MEDS ORDERED: NS 3000ML IRR IR ONE (07:17)
[2017-01-23] MEDS ORDERED: NAROPIN 0.2% 40 MG/20 ML VIAL ONE (07:25)
[2017-01-23] MEDS ORDERED: VALIUM ONE (08:03)
[2017-01-23] MEDS ORDERED: VALIUM PO STA (08:05)
--- NOTE | 2017-01-23 08:14 | PCM.HP ---
History of Present Illness Reason for Visit: Left knee pain History of Present Illness 61yo male complains of left knee pain for several years, and getting worse. He complains of night pain and giving way. He has tried cortisone injections along with bracing and physical therapy without relief. He has had right total knee arthroplasty a couple months ago with good results. His xrays do show severe tricompartmental bone on bone OA. Past Surgical History: Hernia Repair, Total knee replacement (right) Past Social History Smoke: No Alcohol: occassional Drugs: None Travel Hx EBOLA RISK:Travel to/contact w: No Review of Systems Musculoskeletal: leg pain (Left knee pain) Allergies: Coded Allergies: No Known Allergies (Unverified , 01/18/17) Scheduled Acetaminophen With Codeine (Tylenol With Codeine #4 Tablet), 1-2 TAB PO Q6HR Scheduled PRN Methocarbamol (Robaxin), 500 MG PO PRN PRN for PAIN, (Reported) Tramadol Hcl (Tramadol Hcl), 50 MG PO PRN PRN for PAIN, (Reported) Discontinued Medications Diazepam (Diazepam), 1-2 TAB PO Q4HR PRN for muscle spasm Discontinued Reason: Discontinue Rivaroxaban (Xarelto), 10 MG PO DAILY Discontinued Reason: Discontinue VTE VTE Risk Total Score: >5 VTE Risk Score VTE Risk: Score 0-1 = Low Risk (Aggressive mobilization; early ambulation; no VTE prophylaxis required) Score 2: Moderate Risk (Intermittent/Pneumatic Compression Device OR Lovenox/Heparin/Coumadin) Score 3-4: High Risk (Intermittent/Pneumatic Compression Device AND Lovenox/Heparin/Coumadin) Score > or =5: Highest Risk (Intermittent/Pneumatic Compression Device AND Lovenox/Heparin/Coumadin) VTE VTE Present on Admission: No Currently receiving anticoagul: No VTE Risk Total Score: >5 Exam Vital Signs Vital Signs Date Time Temp Pulse Resp B/P (MAP) Pulse Ox O2 Delivery O2 Flow Rate FiO2 01/23/17 06:07 Room Air 01/23/17 06:07 97.0 94 18 167/92 (117) 94 General Appearance: Alert, Oriented X3, Cooperative, No acute distress HEENT: Atraumatic Respiratory: Clear to auscultation, Normal air movement Cardiovascular: Regular rate, Normal S1, Normal S2, No murmurs Abdominal: Normal bowel sounds, Soft, No tenderness, No hepatospenomegaly Extremities: No clubbing, No cyanosis, No edema, Normal pulses, No tenderness/ swelling, Other (Left knee, obvious varus deformity, full extension, 120 degrees flexion, moderate crepitation) Skin: No rash, No breakdown, No lesions Neuro: Normal gait, Normal speech, Strength at 5/5 X4 ext, Normal tone, Sensation intact, Cranial nerves 3-12 NL, Reflexes 2+ Psych/Mental Status: Mental status NL, Mood NL Assessment/Plan Assessment/Plan Assessment/Plan A: Left knee OA P: Left total knee arthroplasty Problems: (1) Osteoarthritis of left knee Status: Chronic ICD Code: M17.12 - Unilateral primary osteoarthritis, left knee SNOMED: [id number] Patient History: Alzheimer's disease 32 MOTHER Cerebrovascular disorder 32 MOTHER Diabetes mellitus G8 SISTER FHx: multiple sclerosis 32 MOTHER No known health problems G8 BROTHER G8 SISTER Ulcerative colitis G8 SISTER Valvular heart disease 33 FATHER ELOISA GARDNER PAC Jan 23, 2017 08:14
[2017-01-23] MEDS ORDERED: LACTATED RINGERS 1,000 ML ONE (10:32)
[2017-01-23] MEDS ORDERED: DILAUDID IV STA (10:59)
[2017-01-23] MEDS ORDERED: AMBIEN PO PRN (11:00)
[2017-01-23] MEDS ORDERED: CEPACOL SORE THROAT LOZENGE MM PRN (11:00)
[2017-01-23] MEDS ORDERED: DILAUDID IV PRN ×2 (11:00)
[2017-01-23] MEDS ORDERED: VENTOLIN IH PRN (11:00)
[2017-01-23] MEDS ORDERED: BENADRYL IV PRN (11:00)
[2017-01-23] MEDS ORDERED: PHENERGAN IV PRN (11:00)
[2017-01-23] MEDS ORDERED: LACTATED RINGERS 1,000 ML IV SCH (11:00)
[2017-01-23] MEDS ORDERED: ZOFRAN IV PRN (11:00)
--- NOTE | 2017-01-23 11:21 | OPH ---
DATE OF SURGERY: 01/23/2017 PREOPERATIVE DIAGNOSIS: OA of the left knee. POSTOPERATIVE DIAGNOSIS: OA of the left knee. OPERATIVE PROCEDURE: Left total knee arthroplasty using Medacta Sphere type knee, size 3+ femur, a size 4 tibia, 10 mm insert, medium dome patella. All components were cemented. SURGEON: Melecio Donovan MD CHIN STRAP SEWER: Radha Ferreira PA-C TOURNIQUET TIME: 80 minutes at 300 mmHg. DRAINS: None. BLOOD LOSS: 400 mL. DESCRIPTION OF INDICATIONS: A 61-year-old male with a several year history of pain about the left knee secondary to osteoarthritis. He complains of pain with just household ambulation. 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 He also complained of giving way. He has had a trial of home physical therapy as well with bracing. He takes tramadol for the pain as well as [id number] anti-inflammatories. Exam shows that he has a mild varus deformity, full range of motion, good medial and lateral stability, moderate crepitation. His x-rays show that he is halr-lk-qdiw medially as well as about the patellofemoral joint. He was taken to the operating room for left total knee arthroplasty for pain relief. DESCRIPTION OF PROCEDURE: The patient was placed on the operating table in the supine position. General endotracheal anesthetic was induced without difficulty. Left thigh was padded and a tourniquet was applied. Left lower extremity was then sterilely prepped and draped. The patient had the knee flexed to 90 degrees. The leg was exsanguinated with an Esmarch and the tourniquet was inflated to 300 mmHg. Anterior incision was made about the knee. The incision was midline. Full thickness flaps were developed medially and laterally. A medial parapatellar arthrotomy was performed and the patella was deviated laterally. The capsule and the MCL were released around the posterior medial corner. Medial and lateral meniscectomies were performed. The anterior and posterior cruciate ligaments were excised. The patient then had the intramedullary drill hole made about the distal femur. The guide kaya with the distal femoral cutting block attached was placed down the shaft of the femur. It was set at 9 mm of resection and 6 degrees of valgus. Distal femoral cut was made after the cutting block was pinned into position. The tibia was then subluxed anteriorly with a bent knee retractor. Intramedullary drill hole was made about the center of the tibial plateau. Again, the cutting guide that was attached to the intramedullary kaya was placed about the proximal tibia after the intramedullary kaya was placed down the shaft of the tibia. The cutting block was adjusted for rotation posterior slope, varus valgus and depth of cut. We started at 8 mm below the least involved surface. The cutting block was pinned into position. The tibial cut was made with the power saw. The attention was turned back to the proximal femur. The #2 jig was applied and pinned into position. It measured 3+. The 3+, #3 jig was placed about the distal femur. The cutting block was held into position with 2 screws and 2 pins. The anterior and posterior femoral cuts were made as well as the chamfer cuts. Tibia was subluxed anteriorly with a bent knee retractor. A size 4 tibial component had good coverage. The trial tibial component was pinned into position. The central drill hole was made and then the cruciate punch was used to stabilize the tibial component. The patient then had a trial reduction done with a 4 tibia, 3+ femur, 10 mm insert. The knee went out into full extension. He had excellent medial and lateral stability throughout the range of motion. The flexion and extension blocks were both stable at 10 mm of thickness. The patient then had the final medial and lateral femoral drill holes made. The femoral sulcus cut was made. The patient then had all the trial components removed. The bone ends were then copiously irrigated and dried. A size 4 tibial component was cemented into position. The 10 mm insert was impacted into position and held there with an anterior screw. The femoral component and the patellar component were likewise cemented. Once all the excess cement was removed and the cement had hardened, then, the tourniquet was released. The bleeding was controlled with the Aquamantys device. The quadriceps tendon and the capsule was closed with a #1 PDS in interrupted qqzmaa-sd-spypm manner. The subcutaneous was closed with a 2-0 Monocryl barbed in a running manner and the skin was closed with aruna. A medium size Aquacel dressing was applied, it was reinforced with ABD pads, 4 x 8 cast padding and Wes wrap. The patient was extubated in the operating room, sent to recovery in stable condition. Melecio Donovan MD DR: KVEIN/david JOB# [id number]
[2017-01-23] MEDS ORDERED: VERSED IV PRN (11:30)
--- NOTE | 2017-01-23 11:39 | NUR ---
Pt on unit Pt arrived on unit via bed from PACU. Received report and assumed care of pt. Oriented pt to room. Special vitals started. Fluids and snacks provided. Pain medication given. Pt denies further needs. Family at bedside. Call light within reach.
[2017-01-23] MEDS: NORCO 5MG PO PRN ×4 (11:51→23:55)
[2017-01-23] MEDS: NORCO 5MG PO SCH ×3 (11:52→20:00)
--- NOTE | 2017-01-23 13:41 | DIREP ---
PROCEDURE:XRAY KNEE 1-2 VWS-LT COMPARISON:None. INDICATIONS:post op left total knee arthroplasty FINDINGS: BONES:No acute fracture. JOINTS:Total knee arthroplasty. The prosthetic joint appears intact and appropriately aligned. SOFT TISSUES:Soft tissue edema and emphysema about the knee is consistent with recent postoperative state, as indicated by overlying skin aruna. CONCLUSION:Postoperative changes of recent total left knee arthroplasty. No suspicious abnormality. Dictated by: Nathaniel Marquez M.D. on 01/23/2017 at 01:39 PM
[2017-01-23] MEDS: ANCEF IV SCH ×2 (14:00→21:05)
[2017-01-23] MEDS ORDERED: ANCEF 2 GM/D5W 50ML IV SCH (14:00)
[2017-01-23] MEDS: D5W IV SCH ×2 (14:00→21:05)
--- NOTE | 2017-01-23 17:42 | PRM.PN ---
Subjective Subjective Date: Jan 23, 2017 Time: 17:40 Subjective Awake and alert Pain ok VSS NVM+ Stable Patient History: Alzheimer's disease 32 MOTHER Cerebrovascular disorder 32 MOTHER Diabetes mellitus G8 SISTER FHx: multiple sclerosis 32 MOTHER No known health problems G8 BROTHER G8 SISTER Ulcerative colitis G8 SISTER Valvular heart disease 33 FATHER VTE VTE Risk Total Score: >5 VTE Risk Score VTE Risk: Score 0-1 = Low Risk (Aggressive mobilization; early ambulation; no VTE prophylaxis required) Score 2: Moderate Risk (Intermittent/Pneumatic Compression Device OR Lovenox/Heparin/Coumadin) Score 3-4: High Risk (Intermittent/Pneumatic Compression Device AND Lovenox/Heparin/Coumadin) Score > or =5: Highest Risk (Intermittent/Pneumatic Compression Device AND Lovenox/Heparin/Coumadin) Review of Systems Musculoskeletal: leg pain (Left knee pain) Allergies: Coded Allergies: No Known Allergies (Unverified , 01/18/17) Scheduled Acetaminophen With Codeine (Tylenol With Codeine #4 Tablet), 1-2 TAB PO Q6HR Scheduled PRN Methocarbamol (Robaxin), 500 MG PO PRN PRN for PAIN, (Reported) Tramadol Hcl (Tramadol Hcl), 50 MG PO PRN PRN for PAIN, (Reported) Discontinued Medications Diazepam (Diazepam), 1-2 TAB PO Q4HR PRN for muscle spasm Discontinued Reason: Discontinue Rivaroxaban (Xarelto), 10 MG PO DAILY Discontinued Reason: Discontinue Objective Vitals and I/O Vital Sign - Last 24 Hours 01/23/17 01/23/17 01/23/17 01/23/17 06:07 06:07 07:30 07:34 Temp 97.0 Pulse 94 87 80 Resp 18 18 18 B/P (MAP) 167/92 (117) 168/99 (122) 159/88 (111) Pulse Ox 94 98 97 O2 Delivery Room Air Room Air Nasal Canula Nasal Canula 01/23/17 01/23/17 01/23/17 01/23/17 07:39 07:41 10:42 10:42 Temp 97.6 Pulse 73 79 94 Resp 18 18 18 B/P (MAP) 154/96 (115) 145/93 (110) 154/96 (115) Pulse Ox 98 97 99 O2 Delivery Nasal [place] Nasal [place]ula Hi Con Mask O2 Flow Rate 15 01/23/17 01/23/17 01/23/17 01/23/17 10:47 10:52 10:57 11:02 Temp 97.2 98.2 Pulse 90 90 80 91 Resp 16 18 18 18 B/P (MAP) 156/88 (110) 170/91 (117) 159/94 (115) 153/95 (114) Pulse Ox 98 99 97 94 O2 Delivery Hi Con Mask Hi Con Mask Room Air Room Air 01/23/17 01/23/17 01/23/17 01/23/17 11:07 11:12 11:17 11:22 Temp 97.6 98.2 Pulse 79 82 90 89 Resp 18 16 16 16 B/P (MAP) 154/93 (113) 155/87 (109) 160/85 (110) 159/87 (111) Pulse Ox 95 100 98 95 O2 Delivery Room Air Nasal [place] Nasal Canula Nasal Canula 01/23/17 01/23/17 01/23/17 01/23/17 11:27 11:32 13:15 15:43 Temp 98.0 Pulse 89 83 102 Resp 16 16 16 B/P (MAP) 159/92 (114) 159/96 (117) Pulse Ox 94 95 95 O2 Delivery Nasal Canula Nasal Canula Nasal Cannula Room Air O2 Flow Rate 1.00 FiO2 21 01/23/17 15:44 Resp 16 Pulse Ox 95 Medication Reconciliation Scheduled Acetaminophen With Codeine (Tylenol With Codeine #4 Tablet), 1-2 TAB PO Q6HR Scheduled PRN Methocarbamol (Robaxin), 500 MG PO PRN PRN for PAIN, (Reported) Tramadol Hcl (Tramadol Hcl), 50 MG PO PRN PRN for PAIN, (Reported) Discontinued Medications Diazepam (Diazepam), 1-2 TAB PO Q4HR PRN for muscle spasm Discontinued Reason: Discontinue Rivaroxaban (Xarelto), 10 MG PO DAILY Discontinued Reason: Discontinue Course Blood Pressure Systolic: 159 Blood Pressure Diastolic: 96 Blood Pressure Mean: 117 Assessment/Plan Assessment/Plan Patient History: Alzheimer's disease 32 MOTHER Cerebrovascular disorder 32 MOTHER Diabetes mellitus G8 SISTER FHx: multiple sclerosis 32 MOTHER No known health problems G8 BROTHER G8 SISTER Ulcerative colitis G8 SISTER Valvular heart disease 33 FATHER BRIAN WANG MD Jan 23, 2017 17:42
[2017-01-23 18:10] LABS: HEMOGLOBIN 11.8 g/dL (13.9-16.3); MEAN CELL HGB 31.5 pg (26-34); MEAN CELL HGB CONCENTRATION 32.8 g/dL (33-37); MEAN PLATELET VOLUME 10.1 fL (7.8-11.0); RED CELL DISTRIBUTION WIDTH 12.7 % (11.5-14.5); WHITE BLOOD CELL 13.7 10^3/uL (4.5-11.0)
[2017-01-23] MEDS: TORADOL IV PRN (20:14)
[2017-01-23] MEDS: VALIUM PO PRN (23:55)
[2017-01-24 00:25] VITALS: BP 149/90
[2017-01-24] MEDS: NORCO 5MG PO SCH ×6 (04:00→20:00)
[2017-01-24] MEDS: NORCO 5MG PO PRN ×6 (04:23→23:29)
[2017-01-24 04:27] VITALS: BP 137/90
[2017-01-24 05:16] LABS: HEMOGLOBIN 10.5 g/dL (13.9-16.3); MEAN CELL HGB 31.5 pg (26-34); MEAN CELL HGB CONCENTRATION 32.8 g/dL (33-37); MEAN CORP VOLUME 96.1 fL (78-100); MEAN PLATELET VOLUME 10.2 fL (7.8-11.0); RED CELL DISTRIBUTION WIDTH 12.6 % (11.5-14.5); WHITE BLOOD CELL 12.3 10^3/uL (4.5-11.0)
[2017-01-24] MEDS: ANCEF IV SCH (05:57)
[2017-01-24] MEDS: D5W IV SCH (05:57)
--- NOTE | 2017-01-24 06:30 | NUR ---
Report received report and assumed care of pt
--- NOTE | 2017-01-24 08:22 | NUR ---
Post op pain round POD #1 after nerve block for knee surgery. Pt is sitting on side of bed. Pt has ambulated yesterday. States had great pain control from nerve block and was able to sleep throughout the night. Sensations returned early this morning. All sensations intact at the moment. pt is very pleased with pain block and anesthetic. No complications noted.
[2017-01-24] MEDS: PEPCID PO SCH (08:30)
[2017-01-24] MEDS: XARELTO PO SCH (08:30)
[2017-01-24] MEDS: COLACE PO SCH (08:30)
[2017-01-24 08:36] VITALS: BP 130/82
--- NOTE | 2017-01-24 08:36 | PRM.PN ---
Subjective Subjective Date: Jan 24, 2017 Time: 08:35 Subjective Awake and alert Pain ok Dressing dry and intact Up with PT in room yesterday Afebrile, VSS H/H M-N-V intact Patient History: Alzheimer's disease 32 MOTHER Cerebrovascular disorder 32 MOTHER Diabetes mellitus G8 SISTER FHx: multiple sclerosis 32 MOTHER No known health problems G8 BROTHER G8 SISTER Ulcerative colitis G8 SISTER Valvular heart disease 33 FATHER VTE VTE Risk Total Score: >5 VTE Risk Score VTE Risk: Score 0-1 = Low Risk (Aggressive mobilization; early ambulation; no VTE prophylaxis required) Score 2: Moderate Risk (Intermittent/Pneumatic Compression Device OR Lovenox/Heparin/Coumadin) Score 3-4: High Risk (Intermittent/Pneumatic Compression Device AND Lovenox/Heparin/Coumadin) Score > or =5: Highest Risk (Intermittent/Pneumatic Compression Device AND Lovenox/Heparin/Coumadin) Review of Systems Musculoskeletal: leg pain (Left knee pain) Allergies: Coded Allergies: No Known Allergies (Unverified , 01/18/17) Scheduled Acetaminophen With Codeine (Tylenol With Codeine #4 Tablet), 1-2 TAB PO Q6HR Scheduled PRN Methocarbamol (Robaxin), 500 MG PO PRN PRN for PAIN, (Reported) Tramadol Hcl (Tramadol Hcl), 50 MG PO PRN PRN for PAIN, (Reported) Discontinued Medications Diazepam (Diazepam), 1-2 TAB PO Q4HR PRN for muscle spasm Discontinued Reason: Discontinue Rivaroxaban (Xarelto), 10 MG PO DAILY Discontinued Reason: Discontinue Objective Vitals and I/O Vital Sign - Last 24 Hours 01/23/17 01/23/17 01/23/17 01/23/17 10:42 10:42 10:47 10:52 Temp 97.6 97.2 Pulse 94 90 90 Resp 18 16 18 B/P (MAP) 154/96 (115) 156/88 (110) 170/91 (117) Pulse Ox 99 98 99 O2 Delivery Hi Con Mask Hi Con Mask Hi Con Mask O2 Flow Rate 15 01/23/17 01/23/17 01/23/17 01/23/17 10:57 11:02 11:07 11:12 Temp 98.2 97.6 Pulse 80 91 79 82 Resp 18 18 18 16 B/P (MAP) 159/94 (115) 153/95 (114) 154/93 (113) 155/87 (109) Pulse Ox 97 94 95 100 O2 Delivery Room Air Room Air Room Air Nasal [place] 01/23/17 01/23/17 01/23/17 01/23/17 11:17 11:22 11:27 11:32 Temp 98.2 98.0 Pulse 90 89 89 83 Resp 16 16 16 16 B/P (MAP) 160/85 (110) 159/87 (111) 159/92 (114) 159/96 (117) Pulse Ox 98 95 94 95 O2 Delivery Nasal Canula Nasal Canula Nasal Canula Nasal Canula 01/23/17 01/23/17 01/23/17 01/23/17 13:15 15:43 15:44 19:35 Pulse 102 Resp 16 16 Pulse Ox 95 95 O2 Delivery Nasal Cannula Room Air Room Air O2 Flow Rate 1.00 FiO2 21 01/23/17 01/23/17 01/24/17 01/24/17 20:13 21:20 00:25 04:27 Temp 98.4 98.2 97.7 Pulse 101 101 75 77 Resp 18 18 18 18 B/P (MAP) 156/89 (111) 149/90 (109) 137/90 (106) Pulse Ox 94 94 96 95 O2 Delivery Room Air Intake and Output 01/23/17 01/23/17 01/24/17 15:00 23:00 07:00 Intake Total 7950 ml 450 ml Output Total 900 ml 1750 ml Balance 7950 ml -900 ml -1300 ml Medication Reconciliation Scheduled Acetaminophen With Codeine (Tylenol With Codeine #4 Tablet), 1-2 TAB PO Q6HR Scheduled PRN Methocarbamol (Robaxin), 500 MG PO PRN PRN for PAIN, (Reported) Tramadol Hcl (Tramadol Hcl), 50 MG PO PRN PRN for PAIN, (Reported) Discontinued Medications Diazepam (Diazepam), 1-2 TAB PO Q4HR PRN for muscle spasm Discontinued Reason: Discontinue Rivaroxaban (Xarelto), 10 MG PO DAILY Discontinued Reason: Discontinue Course Blood Pressure Systolic: 137 Blood Pressure Diastolic: 90 Blood Pressure Mean: 106 Assessment/Plan Assessment/Plan Patient History: Alzheimer's disease 32 MOTHER Cerebrovascular disorder 32 MOTHER Diabetes mellitus G8 SISTER FHx: multiple sclerosis 32 MOTHER No known health problems G8 BROTHER G8 SISTER Ulcerative colitis G8 SISTER Valvular heart disease 33 FATHER Plan Continue with PT today Recheck CBC tomorrow ELOISA GARDNER PAC Jan 24, 2017 08:36
[2017-01-24] MEDS: VALIUM PO PRN ×2 (10:24→20:03)
[2017-01-24] MEDS: TORADOL IV PRN ×3 (12:01→23:29)
[2017-01-24 12:35] VITALS: BP 167/88
--- NOTE | 2017-01-24 15:34 | NUR ---
DISCHARGE PLANNING: CM/SS VISITED WITH PT REGARDING DISCHARGE PLANNING. PT LIVES HOME ALONE, BUT WAS PREVIOUSLY VERY INDEPENDENT AND ASSISTED IN TAKING CARE OF HIS PARENTS. PT HAS ALL HIS DME IN PLACE FROM PREVIOUS KNEE REPLACEMENT. PT'S PARENTS HOME IS HANDIC[employer] EQUIP SO HE CAN STAY THERE POST DISCHARGE TO AIDE IN RECOVERY PROCESS. PT PREVIOUSLY ATTENDED OUT PATIENT AT [facility] AND [employer] FOR PHYSICAL THERAPY NEEDS. PT WOULD LIKE TO GO BACK THERE UPON DISCHARGE. SS REACHED OUT TO VILLA MATTA WITH [facility] AND FAXED PT'S CLINICAL FOR REVIEW. SS WILL FOLLOW UP REGARDING APPOINTMENT TIME AND MAKE SURE THINGS ARE GOOD FOR PT TO GO UPON DISCHARGE. NO FURTHER NEEDS NOTED OR IDENTIFIED AT THIS TIME. PT SAFETY HANDOUT ADDRESSED, NO QUESTIONS ASKED, UNDERSTANDING VERBALIZED. SS TO CONTINUE TO FOLLOW AND MONITOR DISCHARGE PLANNING NEEDS.
[2017-01-24 16:48] VITALS: BP 147/92
[2017-01-24 19:25] VITALS: BP 166/96
[2017-01-24] MEDS: RESTORIL PO PRN (22:05)
[2017-01-25 00:19] VITALS: BP 148/90
[2017-01-25] MEDS: NORCO 5MG PO SCH ×6 (04:00→20:00)
[2017-01-25] MEDS: NORCO 5MG PO PRN ×4 (04:25→19:48)
[2017-01-25 04:27] VITALS: BP 156/107
[2017-01-25 05:57] LABS: HEMOGLOBIN 10.6 g/dL (13.9-16.3); MEAN CELL HGB 31.5 pg (26-34); MEAN CELL HGB CONCENTRATION 32.2 g/dL (33-37); MEAN CORP VOLUME 97.6 fL (78-100); MEAN PLATELET VOLUME 10.4 fL (7.8-11.0); RED CELL DISTRIBUTION WIDTH 13.1 % (11.5-14.5); WHITE BLOOD CELL 10.2 10^3/uL (4.5-11.0)
[2017-01-25] MEDS: TORADOL IV PRN ×3 (07:03→19:49)
[2017-01-25 07:19] VITALS: BP 165/97
--- NOTE | 2017-01-25 08:42 | PRM.PN ---
Subjective Subjective Date: Jan 25, 2017 Time: 08:30 Subjective Slept better last night Pain ok Afebrile HGB 10.9 Cont with PT Patient History: Alzheimer's disease 32 MOTHER Cerebrovascular disorder 32 MOTHER Diabetes mellitus G8 SISTER FHx: multiple sclerosis 32 MOTHER No known health problems G8 BROTHER G8 SISTER Ulcerative colitis G8 SISTER Valvular heart disease 33 FATHER VTE VTE Risk Total Score: >5 VTE Risk Score VTE Risk: Score 0-1 = Low Risk (Aggressive mobilization; early ambulation; no VTE prophylaxis required) Score 2: Moderate Risk (Intermittent/Pneumatic Compression Device OR Lovenox/Heparin/Coumadin) Score 3-4: High Risk (Intermittent/Pneumatic Compression Device AND Lovenox/Heparin/Coumadin) Score > or =5: Highest Risk (Intermittent/Pneumatic Compression Device AND Lovenox/Heparin/Coumadin) Review of Systems Musculoskeletal: leg pain (Left knee pain) Allergies: Coded Allergies: No Known Allergies (Unverified , 01/18/17) Scheduled Acetaminophen With Codeine (Tylenol With Codeine #4 Tablet), 1-2 TAB PO Q6HR Scheduled PRN Methocarbamol (Robaxin), 500 MG PO PRN PRN for PAIN, (Reported) Tramadol Hcl (Tramadol Hcl), 50 MG PO PRN PRN for PAIN, (Reported) Discontinued Medications Diazepam (Diazepam), 1-2 TAB PO Q4HR PRN for muscle spasm Discontinued Reason: Discontinue Rivaroxaban (Xarelto), 10 MG PO DAILY Discontinued Reason: Discontinue Objective Vitals and I/O Vital Sign - Last 24 Hours 01/24/17 01/24/17 01/24/17 01/24/17 09:16 09:29 12:35 16:48 Temp 98.6 98.0 Pulse 78 82 81 Resp 16 18 18 B/P (MAP) 167/88 (114) 147/92 (110) Pulse Ox 95 97 97 O2 Delivery Room Air Room Air FiO2 21 01/24/17 01/24/17 01/24/17 01/25/17 19:25 19:25 21:01 00:19 Temp 97.4 97.5 Pulse 92 92 86 Resp 18 18 18 B/P (MAP) 166/96 (119) 148/90 (109) Pulse Ox 97 97 94 O2 Delivery Room Air Room Air 01/25/17 01/25/17 04:27 07:19 Temp 97.8 98.4 Pulse 84 79 Resp 18 18 B/P (MAP) 156/107 (123) 165/97 (119) Pulse Ox 95 95 O2 Delivery Room Air Intake and Output 01/24/17 01/24/17 01/25/17 15:00 23:00 07:00 Output Total 900 ml Balance -900 ml Medication Reconciliation Scheduled Acetaminophen With Codeine (Tylenol With Codeine #4 Tablet), 1-2 TAB PO Q6HR Scheduled PRN Methocarbamol (Robaxin), 500 MG PO PRN PRN for PAIN, (Reported) Tramadol Hcl (Tramadol Hcl), 50 MG PO PRN PRN for PAIN, (Reported) Discontinued Medications Diazepam (Diazepam), 1-2 TAB PO Q4HR PRN for muscle spasm Discontinued Reason: Discontinue Rivaroxaban (Xarelto), 10 MG PO DAILY Discontinued Reason: Discontinue Course Blood Pressure Systolic: 165 Blood Pressure Diastolic: 97 Blood Pressure Mean: 119 Assessment/Plan Assessment/Plan Patient History: Alzheimer's disease 32 MOTHER Cerebrovascular disorder 32 MOTHER Diabetes mellitus G8 SISTER FHx: multiple sclerosis 32 MOTHER No known health problems G8 BROTHER G8 SISTER Ulcerative colitis G8 SISTER Valvular heart disease 33 FATHER BRIAN WANG MD Jan 25, 2017 08:42
[2017-01-25] MEDS: COLACE PO SCH (09:22)
[2017-01-25] MEDS: PEPCID PO SCH (09:22)
[2017-01-25] MEDS: XARELTO PO SCH (09:23)
[2017-01-25 11:44] VITALS: BP 155/93
[2017-01-25 16:27] VITALS: BP 121/83
--- NOTE | 2017-01-25 16:40 | NUR ---
STATUS PT IN BED RESTING EYES CLOSED AT THIS TIME. PT CPM IS OFF AT THIS TIME AFTER 1.5 HOURS BEING ON. PT DENIES ANY OTHER PAIN OR DISCOMFORT AT THIS TIME CALL LIGHT IN REACH.
--- NOTE | 2017-01-25 18:34 | NUR ---
PT AMBULATED 300 FEET WITH WALKER AND STANDBY ASSIST PT TOLERATED WELL C/O PAIN AT A 4
[2017-01-25 18:42] VITALS: BP 151/101
--- NOTE | 2017-01-25 18:51 | NUR ---
REPORT REPORT GIVEN TO ONCOMING SHIFT
[2017-01-25] MEDS: RESTORIL PO PRN (21:40)
[2017-01-26] MEDS: NORCO 5MG PO PRN ×3 (00:06→09:45)
[2017-01-26 00:08] VITALS: BP 143/78
[2017-01-26] MEDS: NORCO 5MG PO SCH ×3 (04:00→07:57)
[2017-01-26] MEDS: TORADOL IV PRN ×2 (04:15→09:45)
[2017-01-26 04:43] VITALS: BP 147/93
[2017-01-26 05:34] LABS: BASOPHIL % 0.2 % (0.0-0.2); EOSINOPHIL # 0.4 10^3/uL (0.0-0.2); EOSINOPHIL % 3.6 % (0.0-5.0); HEMOGLOBIN 10.3 g/dL (13.9-16.3); LYMPHOCYTES # 3.7 10^3/uL (1.0-4.8); LYMPHOCYTES % 36.8 % (24.0-44.0); MEAN CELL HGB 31.2 pg (26-34); MEAN CELL HGB CONCENTRATION 31.8 g/dL (33-37); MEAN CORP VOLUME 98.2 fL (78-100); MEAN PLATELET VOLUME 10.4 fL (7.8-11.0); MONOCYTES # 1.1 10^3/uL (0.3-0.8); MONOCYTES % 11.3 % (5.0-12.0); NEUTROPHIL # 4.8 10^3/uL (1.8-7.7); NEUTROPHILS % 47.7 % (41.0-85.0); RED CELL DISTRIBUTION WIDTH 13.2 % (11.5-14.5); WHITE BLOOD CELL 10.1 10^3/uL (4.5-11.0)
[2017-01-26 07:42] VITALS: BP 147/86
[2017-01-26] MEDS: XARELTO PO SCH (08:14)
[2017-01-26] MEDS: PEPCID PO SCH (08:14)
[2017-01-26] MEDS: COLACE PO SCH (08:14)
--- NOTE | 2017-01-26 08:50 | PRM.PN ---
Subjective Subjective Date: Jan 26, 2017 Time: 08:48 Subjective Awake and alert Pain ok Wound benign M-N-V intact Afebrile, VSS H/H , stable Up independently in room with walker Patient History: Alzheimer's disease 32 MOTHER Cerebrovascular disorder 32 MOTHER Diabetes mellitus G8 SISTER FHx: multiple sclerosis 32 MOTHER No known health problems G8 BROTHER G8 SISTER Ulcerative colitis G8 SISTER Valvular heart disease 33 FATHER VTE VTE Risk Total Score: >5 VTE Risk Score VTE Risk: Score 0-1 = Low Risk (Aggressive mobilization; early ambulation; no VTE prophylaxis required) Score 2: Moderate Risk (Intermittent/Pneumatic Compression Device OR Lovenox/Heparin/Coumadin) Score 3-4: High Risk (Intermittent/Pneumatic Compression Device AND Lovenox/Heparin/Coumadin) Score > or =5: Highest Risk (Intermittent/Pneumatic Compression Device AND Lovenox/Heparin/Coumadin) Review of Systems Musculoskeletal: leg pain (Left knee pain) Allergies: Coded Allergies: No Known Allergies (Unverified , 01/18/17) Scheduled Acetaminophen With Codeine (Tylenol With Codeine #4 Tablet), 1-2 TAB PO Q6HR Scheduled PRN Methocarbamol (Robaxin), 500 MG PO PRN PRN for PAIN, (Reported) Tramadol Hcl (Tramadol Hcl), 50 MG PO PRN PRN for PAIN, (Reported) Objective Vitals and I/O Vital Sign - Last 24 Hours 01/25/17 01/25/17 01/25/17 01/25/17 10:10 10:24 11:44 12:18 Temp 98.3 Pulse 106 95 104 Resp 16 18 16 B/P (MAP) 155/93 (113) Pulse Ox 97 96 92 O2 Delivery Room Air Room Air Room Air FiO2 21 21 01/25/17 01/25/17 01/25/17 01/25/17 16:27 18:42 19:41 20:40 Temp 99.5 98.1 Pulse 94 92 90 Resp 18 18 18 B/P (MAP) 121/83 (96) 151/101 (118) Pulse Ox 94 98 98 O2 Delivery Room Air Room Air Room Air 01/26/17 01/26/17 01/26/17 01/26/17 00:08 04:43 07:42 08:34 Temp 97.5 97.6 97.6 Pulse 80 92 79 92 Resp 18 18 18 18 B/P (MAP) 143/78 (99) 147/93 (111) 147/86 (106) Pulse Ox 92 97 95 98 O2 Delivery Room Air Room Air FiO2 21 Intake and Output 01/25/17 01/25/17 01/26/17 15:00 23:00 07:00 Intake Total 1300 ml 400 ml Output Total 300 ml 1850 ml 450 ml Balance -300 ml -550 ml -50 ml Medication Reconciliation Scheduled Acetaminophen With Codeine (Tylenol With Codeine #4 Tablet), 1-2 TAB PO Q6HR Scheduled PRN Methocarbamol (Robaxin), 500 MG PO PRN PRN for PAIN, (Reported) Tramadol Hcl (Tramadol Hcl), 50 MG PO PRN PRN for PAIN, (Reported) Course Blood Pressure Systolic: 147 Blood Pressure Diastolic: 86 Blood Pressure Mean: 106 Assessment/Plan Assessment/Plan Patient History: Alzheimer's disease 32 MOTHER Cerebrovascular disorder 32 MOTHER Diabetes mellitus G8 SISTER FHx: multiple sclerosis 32 MOTHER No known health problems G8 BROTHER G8 SISTER Ulcerative colitis G8 SISTER Valvular heart disease 33 FATHER Plan Will d/c home today with home health physical therapy Aquacell dressing placed along with KAYLEN hose Continue to WBAT on left with walker Follow up in office next Monday Prescription written for Tylenol 4, and xarelto Also written for restoril and robaxin ELOISA GARDNER PAC Jan 26, 2017 08:50
[2017-01-26] MEDS ORDERED: RIVA10TA PO (08:56)
[2017-01-26] MEDS ORDERED: TEMA15CA6 PO (08:57)
[2017-01-26 10:30] VITALS: BP 147/86
--- NOTE | 2017-01-26 10:34 | NUR ---
DISCHARGE UPDATE: PT WANTED CM/SS TO COME IN AND REVISIT WITH HIM SINCE HE WAS "OUT OF IT" WHEN WE VISITED WITH HIM [facility]. PT WOULD LIKE TO HAVE [facility] HH IN PLACE UNTIL HE IS ABLE TO GET INTO [facility], AND ALSO WOULD LIKE TO GET A CPM SET UP FOR HOME NEEDS. PT ALSO HAD QUESTIONS REGARDING HIS PREVIOUS CPM HE GOT THROUGH [facility]. PT STATED HE RECEIVED A BILL FOR $164.19 FROM THEM AND WANTED TO KNOW FI THAT WAS BEFORE HIS INSURANCE PAID OR AFTER. CM/SS LET PT AND SISTER KNOW THAT THEY WERE NOT SURE BUT COULD CALL AND FIND OUT. [facility] AT THIS TIME DID NOT HAVE A CPM AND REACHED OUT TO [facility] WHO STATED THEY WOULD WORK ON GETTING PT'S PRE AUTHORIZATION AND THEN WILL CONTACT PT AND DELIVER IT TO HIS PARENTS HOUSE. LEXY WITH [facility] NOTIFIED OF PT'S REFERRAL AND HE WAS DISCHARGING HOME TODAY. [facility]EX[facility] WILL SEND OVER PT'S INFORMATION TO [place] FOR THEM TO FOLLOW WITH PT. NO FURTHER NEEDS NOTED OR IDENTIFIED AT THIS TIME. ALSO REACHED OUT TO [facility] AND LEFT A MESSAGE FOR [facility] TO CALL BACK REGARDING PT'S BILL.
--- NOTE | 2017-01-26 12:15 | NUR ---
DISCHARGE PT DISCHARGED AT THIS TIME. PT DENIES ANY OTHER QUESTIONS OR CONCERNS. PT UNDERSTANDS NEW ORDERS OF MEDICATIONS. PT UNDERSTANDS TO CALL TO SET UP APPOINTMENT FOR PHYSICAL THERAPY. PT LEAVES FLOOR ACCOMPANIED BY SISTER AND LEAVES BY PRIVATE VEHICLE. NO OTHER NEEDS NOTED AT THIS TIME.
--- NOTE | 2017-01-27 12:19 | DSH ---
DATE OF DISCHARGE: 01/26/2017 ADMITTING DIAGNOSIS: Osteoarthritis about the left knee. DISCHARGE DIAGNOSIS: Osteoarthritis about the left knee. OPERATIVE DATE: January 23, 2017 PROCEDURE PERFORMED: Left total knee arthroplasty. CONSULTATIONS: None SUMMARY OF ADMISSION: This is a 61-year-old male who has a several-year history of pain about the left knee, which had just gotten progressively worse, and he was taken to the operating room for a left total knee arthroplasty on January 23, 2017. The patient tolerated the procedure very well. Postoperatively, he has been awake and alert and his vital signs have been stable. He has been on a regular diet and tolerating it well. He has had Physical Therapy and Occupational Therapy while in the hospital. Currently, he is fairly independent with transfers as well as with ambulation with a walker. His pain has been in control with hydrocodone. He has also been on Xarelto 10 mg once daily as well as foot pumps, SCDs, and early ambulation for DVT prophylaxis. He has also been taking Valium for muscle spasms and he has been taking restoril for insomnia at night. On January 26, 2017, and he continued to do well with Physical Therapy and Occupational Therapy. His wound appeared benign and an Aquacel dressing was placed along with a KAYLEN hose. He was discharged on January 26, 2017, and he will have Home Health Physical Therapy and he will continue to use the walker and weightbear as tolerated on that left side. He was given a prescription for Xarelto 10 mg today as well as Tylenol #4. He was also given a prescription for Robaxin and for restoril. He will follow up in the clinic this coming up Monday for a re-evaluation. EMI Mark DR: SHAMA/david JOB# [id number]
== END 2017-01-26 10:30 | disposition home health service (06) | DRG 470 ==
LOC: MS 00:07
PROVIDERS: ADMIT Orthopaedic Surgery; ATTEND Orthopaedic Surgery
PROC: 0SRD0J9 Replacement of Left Knee Joint with Synthetic Substitute, Cemented, Open Approach (ICD-10-PCS; principal; 2017-01-23 08:22)
DX: M17.12 Unilateral primary osteoarthritis, left knee (principal); G47.00 Insomnia, unspecified; Z96.651 Presence of right artificial knee joint; I10 Essential (primary) hypertension; M62.838 Other muscle spasm; Z82.0 Family history of epilepsy and other diseases of the nervous system; Z79.899 Other long term (current) drug therapy; Z83.3 Family history of diabetes mellitus; Z82.3 Family history of stroke; Z81.8 Family history of other mental and behavioral disorders
CPT/HCPCS: 36415; 64447; 71020; 80053; 85025; 85027; 87070; 93005; 97161; 97165; J0690; J1100; J1170; J1885; J2250; J2405; J2795; J3010; J3490; J7030; J7050; J7060; J7120; 73560-LT; 97110-GP; 97116-GP; 97530-GP; 97535-GO; 97760-GP; C1776; G8978-CI; G8978-CK; G8987; G8988; J2710; J8499